=== PATIENT | female | born 1975 | race Caucasian/White ===

== ENCOUNTER 2017-08-22 13:05 | Outpatient (CLI) | payer OTHER ==
[~2017-08-22 13:05] MED LIST: AMOX1TAB12 PO; INTESTINEX680 MG PO; METFORMIN HCL500 M2; NASONEX17 GM NS; NEURONTIN800 MG; VOLTAREN-XR100 MG; ZANAFLEX4 MG; ZYRTEC10 MG PO
== END 2017-08-22 14:40 | disposition home or self-care (01) ==
LOC: LAB 13:05
DX: M32.9 Systemic lupus erythematosus, unspecified (principal); M19.93 Secondary osteoarthritis, unspecified site; E04.2 Nontoxic multinodular goiter

== ENCOUNTER 2017-08-29 09:03 | Outpatient (CLI) | payer OTHER | END 2017-08-29 15:37 | disposition home or self-care (01) | LOC: SONOGRAMA 09:03 → NUCLEAR 11:15 → SONOGRAMA 15:37 | DX: E04.1 Nontoxic single thyroid nodule (principal) ==

== ENCOUNTER 2017-08-29 10:01 | Outpatient (CLI) | payer OTHER | END 2017-08-29 12:00 | disposition home or self-care (01) | LOC: NUCLEAR 10:01 | DX: M15.8 Other polyosteoarthritis (principal); M87.059 Idiopathic aseptic necrosis of unspecified femur; M05.79 Rheumatoid arthritis with rheumatoid factor of multiple sites without organ or systems involvement; I11.9 Hypertensive heart disease without heart failure; R00.2 Palpitations | CPT/HCPCS: 78315; A9503; 93225 ==

== ENCOUNTER 2019-01-27 16:15 | Emergency (ER) | payer OTHER ==
[~2019-01-27] VITALS: Ht 157.5 cm; Wt 75.3 kg
[2019-01-27] MEDS ORDERED: LEVOTHYROXINE25 MCG (16:51)
[2019-01-27] MEDS ORDERED: TOPROL XL50 M1 (16:51)
== END 2019-01-27 21:43 | disposition home or self-care (01) ==
LOC: ER 16:15
DX: I10 Essential (primary) hypertension (principal); R00.2 Palpitations; T38.1X5A Adverse effect of thyroid hormones and substitutes, initial encounter; Y92.89 Other specified places as the place of occurrence of the external cause

== ENCOUNTER 2019-02-06 11:19 | Outpatient (CLI) | payer OTHER ==
[~2019-02-06 11:19] MED LIST changes: +LEVOTHYROXINE25 MCG; +TOPROL XL50 M1
== END 2019-02-06 12:33 | disposition home or self-care (01) ==
LOC: SONOGRAMA 11:19
DX: E04.1 Nontoxic single thyroid nodule (principal)